=== PATIENT | male | born 1940 | race Caucasian/White ===

== ENCOUNTER 2016-07-25 08:12 | Inpatient (IN) | payer MEDICARE, BC ==
[~2016-07-25 08:12] MED LIST: ACTOS45 MG; ASPIRIN325 MG; BENICAR20 MG; BETAGAN5 ML; FLOMAX0.4 MG; GLUCOPHAGE XR500 MG; MOBIC7.5 MG; XALATAN2.5 ML; ZITHROMAX250MG Z-PAK PO; ZOCOR20 MG
[2016-07-25] MEDS ORDERED: BENICAR20 M1 PO (08:32)
[2016-07-25] MEDS ORDERED: LASIX20 M1 PO (08:33)
[2016-07-25] MEDS ORDERED: CYMBALTA60 M1 PO (08:33)
[2016-07-25] MEDS ORDERED: FLOMAX0.4 M1 PO (08:33)
[2016-07-25] MEDS ORDERED: TOPROL XL100 M1 PO (08:33)
[2016-07-25] MEDS ORDERED: AMARYL4 M1 PO (08:34)
[2016-07-25 08:41] LABS: BASO % 0.3 % (0-2); EOS % 1.4 % (0-7); EOSINOPHIL ABSOLUTE COUNT 0.1 tho/cmm (0.0-0.7); HCT-HEMATOCRIT 44.5 % (36.0-53.5); HGB-HEMOGLOBIN 14.7 gm/dl (13.5-17.0); IMMATURE GRANULOCYTES ABSOLUTE 0.03 tho/cmm (0-0.03); IMMATURE GRANULOCYTES PERCENT 0.4 % (0-0.3); LYMPH % 33.2 % (20-45); LYMPH ABSOLUTE COUNT 2.3 tho/cmm (0.8-4.5); MCH (MEAN CORPUSCULAR HGB) 32.2 pg (28.0-32.0); MCV (MEAN CELL VOLUME) 97.4 fl (82.0-96.0); MEAN PLATELET VOLUME 11.1 cmc (9.4-12.4); MONO % 7.4 % (0-12); MONOCYTE ABSOLUTE COUNT 0.5 tho/cmm (0.0-1.2); NEUTROPHILS % 57.3 % (40-80); PLATELET COUNT 185 tho/cmm (150-450); RED BLOOD COUNT 4.57 mil/cmm (4.40-5.70); RED CELL DISTRIBUTION WIDTH 14.1 % (12.4-16.4)
[2016-07-25 08:49] LABS: ANION GAP 17 mmol/L (0-20); BLOOD UREA NITROGEN 53 mg/dl (6-24); CALCIUM 9.2 mg/dl (8.5-10.5); CARBON DIOXIDE-VENOUS 22 mmol/L (22-32); CHLORIDE 108 mmol/l (96-110); CREATININE 2.17 mg/dl (0.60-1.30); GLUCOSE 248 mg/dL (70-110); MAGNESIUM 1.6 mg/dl (1.3-2.6); POTASSIUM 4.6 mmol/L (3.7-5.1); SODIUM 142 mmol/L (135-145); eGFR VALUE FOR BLACK 33 mL/Min
[2016-07-25] MEDS ORDERED: LASIX40 M1 PO (09:59)
[2016-07-25] MEDS ORDERED: ULTRAM50 M1 PO (09:59)
[2016-07-25] MEDS ORDERED: PROSCAR5 M1 PO (10:00)
[2016-07-25] MEDS ORDERED: ZOCOR40 M1 PO (10:00)
[2016-07-25] MEDS ORDERED: MEN'S ONE DAIL1 EACH PO (10:14)
[2016-07-25] MEDS ORDERED: SYMBICORT 160-1 PUFF INH (10:14)
[2016-07-25] MEDS ORDERED: TRESIBA FL100 UNIT/1 SC (10:14)
[2016-07-25] MEDS ORDERED: XALATAN2.5 M1 OP (10:15)
[2016-07-25] MEDS ORDERED: ASPIRIN EC81 MG PO (10:15)
[2016-07-25] MEDS ORDERED: XARELTO15 M1 PO (10:15)
[2016-07-25] MEDS ORDERED: GLUCOPHAGE XR500 M1 PO (10:16)
[2016-07-25] MEDS ORDERED: NESINA25 MG PO (10:16)
[2016-07-25] MEDS ORDERED: SIMBRINZA 1%-0.28 ML OP (10:17)
[2016-07-25] MEDS ORDERED: PROAIR HFA8.5 GM INH (10:17)
[2016-07-25] MEDS ORDERED: TYLENOL EXTRA500 M1 PO (10:18)
[2016-07-26 08:52] LABS: BLOOD UREA NITROGEN 35 mg/dl (6-24); CALCIUM 8.6 mg/dl (8.5-10.5); CARBON DIOXIDE-VENOUS 23 mmol/L (22-32); CHLORIDE 106 mmol/l (96-110); GLUCOSE 245 mg/dL (70-110); SODIUM 138 mmol/L (135-145); eGFR VALUE FOR BLACK 54 mL/Min
[2016-07-26 08:59] LABS: ANION GAP 15 mmol/L (0-20); CREATININE 1.46 mg/dl (0.60-1.30); POTASSIUM 5.5 mmol/L (3.7-5.1)
[2016-07-27 12:27] LABS: ANION GAP 12 mmol/L (0-20); BLOOD UREA NITROGEN 28 mg/dl (6-24); CALCIUM 9.2 mg/dl (8.5-10.5); CARBON DIOXIDE-VENOUS 29 mmol/L (22-32); CHLORIDE 102 mmol/l (96-110); CREATININE 1.48 mg/dl (0.60-1.30); GLUCOSE 235 mg/dL (70-110); SODIUM 139 mmol/L (135-145); eGFR VALUE FOR BLACK 53 mL/Min
[2016-07-27 12:28] LABS: POTASSIUM 4.1 mmol/L (3.7-5.1)
== END 2016-07-27 19:00 | disposition other institution (70) | DRG 309 ==
LOC: EDMED 08:12 → EMR2 09:55 → PCUA 21:21
PROVIDERS: Emergency Medicine; Physician Assistant Medical; ADMIT Internal Medicine Interventional Cardiology
PROC: B54NZZA Ultrasonography of Left Upper Extremity Veins, Guidance (ICD-10-PCS; principal; 2016-07-27)
PROC: 05HF33Z Insertion of Infusion Device into Left Cephalic Vein, Percutaneous Approach (ICD-10-PCS; principal; 2016-07-27)
DX: I47.1 Supraventricular tachycardia (principal); I13.0 Hypertensive heart and chronic kidney disease with heart failure and stage 1 through stage 4 chronic kidney disease, or unspecified chronic kidney disease; N18.4 Chronic kidney disease, stage 4 (severe); E11.22 Type 2 diabetes mellitus with diabetic chronic kidney disease; I50.42 Chronic combined systolic (congestive) and diastolic (congestive) heart failure; Z68.42 Body mass index [BMI] 45.0-49.9, adult; I25.10 Atherosclerotic heart disease of native coronary artery without angina pectoris; E78.5 Hyperlipidemia, unspecified; J44.9 Chronic obstructive pulmonary disease, unspecified; I25.5 Ischemic cardiomyopathy; I25.2 Old myocardial infarction; E66.9 Obesity, unspecified; E11.65 Type 2 diabetes mellitus with hyperglycemia; E87.5 Hyperkalemia; Z77.22 Contact with and (suspected) exposure to environmental tobacco smoke (acute) (chronic); Z87.891 Personal history of nicotine dependence
CPT/HCPCS: C1751; J0282; J1815; J7030